=== PATIENT | male | born 2000 | race Caucasian/White ===

== ENCOUNTER 2024-04-07 15:21 | Emergency (ER) | payer OTHER ==
[2024-04-07] MEDS: Diphtheria,Pertussis(Acell),Tetanus Vaccine 0.5 ML Syringe IM ONE (18:19)
== END 2024-04-07 18:50 | disposition home or self-care (01) ==
LOC: MW.ED 15:21
DX: S09.90XA Unspecified injury of head, initial encounter (principal); K04.7 Periapical abscess without sinus; Z75.8 Other problems related to medical facilities and other health care; V86.55XA Driver of 3- or 4- wheeled all-terrain vehicle (ATV) injured in nontraffic accident, initial encounter; Y92.410 Unspecified street and highway as the place of occurrence of the external cause
CPT/HCPCS: 70450; 70450-26; 70486; 70486-26; 72125; 72125-26; 99284

== ENCOUNTER 2024-06-12 14:01 | Emergency (ER) | payer SELFPAY ==
[2024-06-12] MEDS ORDERED: Sodium Chloride 0.9% 10 ML Syringe FLUSH PRN (14:02)
[2024-06-12 14:17] LABS: BASOPHILS ABSOLUTE AUTO 0.08 K/uL (0.00-0.20); BASOPHILS PERCENT AUTO 0.9 % (0.0-1.0); EOSINOPHILS ABSOLUTE AUTO 0.16 K/uL (0.00-0.45); EOSINOPHILS PERCENT AUTO 1.8 % (0.0-6.0); HEMATOCRIT 44.4 % (42.0-52.0); IMMATURE GRAN ABSOLUTE AUTO 0.01 K/uL (0.00-0.05); IMMATURE GRAN PERCENT AUTO 0.1 % (0.0-0.4); MEAN CORPUSCULAR HEMOGLOBIN 31.3 pg (28.0-32.0); MEAN CORPUSCULAR HGB CONC 33.8 g/dL (32.0-36.0); MEAN CORPUSCULAR VOLUME 92.5 fL (83.0-99.0); MEAN PLATELET VOLUME 10.4 fL (9.4-12.4); MONOCYTES PERCENT AUTO 10.9 % (0.0-8.0); NEUTROPHILS ABSOLUTE AUTO 5.79 K/uL (1.80-7.70); NEUTROPHILS PERCENT AUTO 63.3 % (41.0-71.0); PLATELET COUNT,PLT 215 K/uL (150-400); WHITE BLOOD CELL COUNT,WBC 9.14 K/uL (3.9-11.3)
[2024-06-12] MEDS: Iopamidol 755 MG/ML 500 ML Multipack Bottle IVPUSH STA (14:32)
[2024-06-12] MEDS: Ondansetron 4 MG/2 ML SDV IVPUSH ONE (14:43)
[2024-06-12] MEDS: Morphine 4 MG/ML Syringe IVPUSH ONE (14:43)
[2024-06-12] MEDS: Ibuprofen 600 MG Tab PO ONE (14:45)
[2024-06-12] MEDS: Acetaminophen 500 MG Tab PO ONE (14:46)
[2024-06-12 14:52] LABS: A/G RATIO 1.2 (0.9-1.6); ALANINE AMINOTRANSFERASE,ALT 21 IU/L (14-63); ALBUMIN 4.3 g/dL (3.4-5.0); ALKALINE PHOSPHATASE 75 U/L (46-116); ASPARTATE AMNIOTRANSFERASE,AST 19 IU/L (15-37); BILIRUBIN TOTAL 0.4 mg/dL (0.2-1.0); BLOOD UREA NITROGEN,BUN 13 mg/dL (7.0-18.0); CARBON DIOXIDE,CO2 29.4 mmol/L (21.0-32.0); CHLORIDE,CL 101 mmol/L (98-107); CREATININE 1.1 mg/dL (0.8-1.3); GLUCOSE RANDOM 138 mg/dL (74-106); LIPASE 37 U/L (16-77); POTASSIUM,K 3.9 mmol/L (3.5-5.1); PROTEIN TOTAL,TP 7.8 g/dL (6.4-8.2); SODIUM,NA 139 mmol/L (136-148)
[2024-06-12 14:56] LABS: ESTIMATED GFR 97 mL/min (>60)
[2024-06-12] MEDS: Acetaminophen/oxyCODONE 325-5 MG Tab PO ONE (15:42)
== END 2024-06-12 16:26 | disposition home or self-care (01) ==
LOC: MW.ED 14:01
DX: S87.01XA Crushing injury of right knee, initial encounter (principal); S83.91XA Sprain of unspecified site of right knee, initial encounter; S80.01XA Contusion of right knee, initial encounter; S20.229A Contusion of unspecified back wall of thorax, initial encounter; S39.91XA Unspecified injury of abdomen, initial encounter; M54.50 Low back pain, unspecified; Z75.8 Other problems related to medical facilities and other health care; W20.8XXA Other cause of strike by thrown, projected or falling object, initial encounter
CPT/HCPCS: 36415; 72128; 73562; 74177; 80053; 83690; 85025; 99284; A9270; Q9967; 72131-26

== ENCOUNTER 2025-04-30 06:32 | Emergency (ER) | payer SELFPAY ==
[2025-04-30] MEDS: Cocoa Butter/Phenylephrine Rectal Supp RECTAL ONE (07:56)
== END 2025-04-30 08:29 | disposition home or self-care (01) ==
LOC: MW.ED 06:32
DX: K64.4 Residual hemorrhoidal skin tags (principal); Z79.899 Other long term (current) drug therapy
CPT/HCPCS: 99283; A9270

== ENCOUNTER 2025-05-04 19:39 | Emergency (ER) | payer SELFPAY ==
[2025-05-04] MEDS: Ondansetron 4 MG Tab.DIS PO ONE (21:07)
[2025-05-04] MEDS: Acetaminophen/oxyCODONE 325-10 MG Tab PO ONE (21:07)
== END 2025-05-04 21:20 | disposition home or self-care (01) ==
LOC: MW.ED 19:39
DX: K64.5 Perianal venous thrombosis (principal); Z79.899 Other long term (current) drug therapy; Z75.3 Unavailability and inaccessibility of health-care facilities
CPT/HCPCS: 46320; 99283; A9270; J2003; 99284